=== PATIENT | male | born 1990 | race Caucasian/White ===

== ENCOUNTER 2018-07-15 13:17 | Emergency (ER) | payer OTHER ==
[2018-07-15 13:21] VITALS: RESP 18
[2018-07-15] MEDS ORDERED: SODIUM CHLORIDE 0.9% 2,000 ML IV STA (13:26)
[2018-07-15] MEDS ORDERED: ONDANSETRON 4 MG/2 ML VIAL IVP STA ×2 (13:26→15:21)
[2018-07-15] MEDS ORDERED: KETOROLAC 30 MG/ML 1 ML VIAL IVP STA (13:30)
[2018-07-15 14:05] LABS: Basophils # (A) 0.1 k/uL (0-0.2); Basophils % (A) 1 %; Eosinophils # (A) 0.2 k/uL (0-0.7); Eosinophils % (A) 2 %; HCT 51.9 % (39.0-53.0); HGB 18.1 gm/dL (13.0-17.5); Lymphocytes # (A) 1.9 k/uL (1.0-4.8); Lymphocytes % (A) 16 %; MCH 31.8 pg (25.0-35.0); MCHC 34.8 g/dL (31.0-37.0); MCV 91.3 fL (80.0-100.0); Mean Platelet Volume 8.7; Monocytes % (A) 8 %; Neutrophils # (A) 8.6 k/uL (1.3-7.7); Neutrophils % (A) 72 %; Platelet Count 306 k/uL (150-450); RBC 5.69 m/uL (4.30-5.90); RDW 15.5 % (11.5-15.5)
[2018-07-15 14:16] LABS: ALT 32 U/L (21-72); AST 27 U/L (17-59); Albumin 5.1 g/dL (3.5-5.0); Alkaline Phosphatase 94 U/L (38-126); Anion Gap 14 mmol/L; Blood Urea Nitrogen 13 mg/dL (9-20); Calcium 10.6 mg/dL (8.4-10.2); Carbon Dioxide 25 mmol/L (22-30); Chloride 99 mmol/L (98-107); Glucose 116 mg/dL (74-99); Lipase 45 U/L (23-300); Potassium 4.1 mmol/L (3.5-5.1); Sodium 138 mmol/L (137-145); Total Bilirubin 1.3 mg/dL (0.2-1.3); Total Protein 8.6 g/dL (6.3-8.2)
--- NOTE | 2018-07-15 14:27 | ED ---
Abdominal Pain HPI - General Chief Complaint: Abdominal Pain Stated Complaint: Abd pain Time Seen by Provider: 07/15/18 13:26 Source: patient, RN notes reviewed Mode of arrival: ambulatory Limitations: no limitations - History of Present Illness Initial Comments: 28-year-old male presents emergency Department chief complaint abdominal pain, nausea vomiting for 4 days. Patient states it's not improving. Patient denies any contacts with some her symptoms. Denies fever, chills, back pain, abdominal surgery history. Patient denies any chest pain or shortness breath. Patient states that nothing makes the pain feel better or worse at this time patient states he does get some pressure relief when he vomits. Patient denies any melena, hematochezia, hematemesis or coffee-ground emesis. - Related Data Previous Rx's Medication Instructions Recorded Ondansetron Odt [Zofran Odt] 4 mg PO Q8HR PRN #10 tab 07/15/18 Allergies Allergy/AdvReac Type Severity Reaction Status Date / Time No Known Allergies Allergy Verified 07/15/18 13:39 Review of Systems ROS Statement: Those systems with pertinent positive or pertinent negative responses have been documented in the HPI. ROS Other: All systems not noted in ROS Statement are negative. Past Medical History Past Medical History: No Reported History History of Any Multi-Drug Resistant Organisms: None Reported Past Surgical History: No Surgical Hx Reported Past Psychological History: No Psychological Hx Reported Smoking Status: Current every day smoker Past Alcohol Use History: None Reported Past Drug Use History: None Reported General Exam Limitations: no limitations General appearance: alert, in no apparent distress Head exam: Present: atraumatic, normocephalic, normal inspection Neck exam: Present: normal inspection, full ROM. Absent: tenderness, meningismus, lymphadenopathy Respiratory exam: Present: normal lung sounds bilaterally. Absent: respiratory distress, wheezes, rales, rhonchi, stridor Cardiovascular Exam: Present: regular rate, normal rhythm, normal heart sounds. Absent: systolic murmur, diastolic murmur, rubs, gallop, clicks GI/Abdominal exam: Present: soft, tenderness (Mild diffuse), normal bowel sounds. Absent: distended, guarding, rebound, rigid Back exam: Absent: CVA tenderness (R), CVA tenderness (L) Psychiatric exam: Present: normal affect, normal mood Course Vital Signs 07/15/18 07/15/18 13:17 15:31 Temperature 97.7 F Pulse Rate 81 83 Respiratory 18 18 Rate Blood Pressure 127/75 131/81 O2 Sat by Pulse 99 97 Oximetry Medical Decision Making - Medical Decision Making 28 show male presents emergency department for nausea vomiting abdominal discomfort. Patient had lab work, CT which is unremarkable for any acute findings. Patient does feel slightly improved after IV fluids and antiemetics. Patient we discharged with antibiotics and close follow-up with GI return parameters were discussed. - Lab Data Result diagrams: 07/15/18 14:00 07/15/18 14:00 Lab Results 07/15/18 07/15/18 07/15/18 Range/Units 14:00 14:00 15:33 WBC 12.0 H (3.8-10.6) k/uL RBC 5.69 (4.30-5.90) m/uL Hgb 18.1 H (13.0-17.5) gm/dL Hct 51.9 (39.0-53.0) % MCV 91.3 (80.0-100.0) fL MCH 31.8 (25.0-35.0) pg MCHC 34.8 (31.0-37.0) g/dL RDW 15.5 (11.5-15.5) % Plt Count 306 (150-450) k/uL Neutrophils % 72 % Lymphocytes % 16 % Monocytes % 8 % Eosinophils % 2 % Basophils % 1 % Neutrophils # 8.6 H (1.3-7.7) k/uL Lymphocytes # 1.9 (1.0-4.8) k/uL Monocytes # 1.0 (0-1.0) k/uL Eosinophils # 0.2 (0-0.7) k/uL Basophils # 0.1 (0-0.2) k/uL Sodium 138 (137-145) mmol/L Potassium 4.1 (3.5-5.1) mmol/L Chloride 99 (98-107) mmol/L Carbon Dioxide 25 (22-30) mmol/L Anion Gap 14 mmol/L BUN 13 (9-20) mg/dL Creatinine 0.94 (0.66-1.25) mg/dL Est GFR (CKD-EPI)AfAm >90 (>60 ml/min/1.73 sqM) Est GFR (CKD-EPI)NonAf >90 (>60 ml/min/1.73 sqM) Glucose 116 H (74-99) mg/dL Calcium 10.6 H (8.4-10.2) mg/dL Total Bilirubin 1.3 (0.2-1.3) mg/dL AST 27 (17-59) U/L ALT 32 (21-72) U/L Alkaline Phosphatase 94 (38-126) U/L Total Protein 8.6 H (6.3-8.2) g/dL Albumin 5.1 H (3.5-5.0) g/dL Lipase 45 (23-300) U/L Urine Color Yellow Urine Appearance Clear (Clear) Urine pH 6.5 (5.0-8.0) Urine Protein 1+ H (Negative) Urine Glucose (UA) Negative (Negative) Urine Ketones 1+ H (Negative) Urine Blood Negative (Negative) Urine Nitrite Negative (Negative) Urine Bilirubin Negative (Negative) Urine Urobilinogen 2.0 (<2.0) mg/dL Ur Leukocyte Esterase Negative (Negative) Urine RBC 1 (0-5) /hpf Urine WBC 1 (0-5) /hpf Ur Squamous Epith Cells <1 (0-4) /hpf Disposition Clinical Impression: Abdominal pain, Nausea & vomiting Disposition: HOME SELF-CARE Condition: Stable Instructions: Acute Nausea and Vomiting (ED) Additional Instructions: Please return to the Emergency Department if symptoms worsen or any other concerns. Prescriptions: Ondansetron Odt [Zofran Odt] 4 mg PO Q8HR PRN #10 tab PRN Reason: Nausea Is patient prescribed a controlled substance at d/c from ED?: No Referrals: None,Stated [Primary Care Provider] - 1-2 days Time of Disposition: 16:15
--- NOTE | 2018-07-15 15:18 | CT ---
EXAMINATION TYPE: CT abdomen pelvis w con DATE OF EXAM: 07/15/2018 COMPARISON: HISTORY: Mid abdominal pain with nausea and vomiting. CT DLP: 968.1 mGycm Automated exposure control for dose reduction was used. TECHNIQUE: Helical acquisition of images was performed from the lung bases through the pelvis. CONTRAST: Performed without Oral Contrast and with IV Contrast, patient injected with 100 mL of Isovue 300. FINDINGS: LUNG BASES: No significant abnormality is appreciated. LIVER/GB: No significant abnormality is appreciated. PANCREAS: No significant abnormality is seen. SPLEEN: No significant abnormality is seen. ADRENALS: No significant abnormality is seen. KIDNEYS: No significant abnormality is seen. FREE AIR: No free air is visualized. RETROPERITONEAL ADENOPATHY: None visualized REPRODUCTIVE ORGANS: No significant abnormality is seen URINARY BLADDER: No significant abnormality is seen. PELVIC ADENOPATHY: None visualized. OSSEOUS STRUCTURES: No significant abnormality is seen. BOWEL: No significant abnormality is seen. Appendix is normal. IMPRESSION: NO EVIDENCE OF ACUTE INTRA-ABDOMINAL OR PELVIC PROCESS. ESSENTIALLY UNREMARKABLE EXAM.
[2018-07-15] MEDS ORDERED: diphenhydrAMINE 50 MG/ML 1 ML VIAL IVP STA (15:21)
[2018-07-15] MEDS ORDERED: FAMOTIDINE 20 MG/2 ML VIAL IV STA (15:22)
[2018-07-15 16:02] LABS: Appearance,Urine Clear (Clear); Bilirubin,Urine Negative (Negative); Blood,Urine Negative (Negative); Color,Urine Yellow; Glucose,Urine (UA) Negative (Negative); Ketones,Urine 1+ (Negative); Leukocyte Esterase,Urine Negative (Negative); Nitrite,Urine Negative (Negative); PH, Urine 6.5 (5.0-8.0); Protein,Urine 1+ (Negative); RBC,Urine 1 /hpf (0-5); Squamous Epithelial Cell,Urine <1 /hpf (0-4); WBC,Urine 1 /hpf (0-5)
[2018-07-15] MEDS ORDERED: METOCLOPRAMIDE 5 MG/ML 2 ML VIAL IVP STA (16:12)
[2018-07-15] MEDS ORDERED: SODIUM CHLORIDE 0.9% 500 ML 500 ML IV ONE (16:12)
[2018-07-15 16:29] LABS: Specific Gravity,Urine >1.050 (1.001-1.035)
[2018-07-15 16:54] VITALS: BP 116/66; PULSE 75; TEMP 98.2
== END 2018-07-15 16:52 | disposition home or self-care (01) ==
LOC: EC 13:17
DX: R10.9 Unspecified abdominal pain (principal); R11.2 Nausea with vomiting, unspecified; F17.200 Nicotine dependence, unspecified, uncomplicated
CPT/HCPCS: 36415; 80053; 83690; 85025; 81001; 74177; 99284; 96374; 96375 ×4; 96376; 96361 ×3; J1200; J2765; J2405; J1885; Q9967

== ENCOUNTER 2019-05-04 08:00 | Emergency (ER) | payer OTHER ==
[2019-05-04 08:11] VITALS: RESP 16; TEMP 98.3
[2019-05-04] MEDS ORDERED: SODIUM CHLORIDE 0.9% 1,000 ML IV STA (08:20)
--- NOTE | 2019-05-04 08:31 | ED ---
Abdominal Pain HPI - General Chief Complaint: Abdominal Pain Stated Complaint: Abd Pain Time Seen by Provider: 05/04/19 08:10 Source: patient, RN notes reviewed Mode of arrival: ambulatory Limitations: no limitations - History of Present Illness Initial Comments: 29-year-old male presents emergency Department chief complaint of worsening abdominal pain. Patient states pain has been waxing and waning last few months but states the last week he's had increase in symptoms. States it's more generalized in nature. Patient states is concerned because he feels very constipated. Patient states he was unable to get any stool out. He did have some bleeding 3 days ago. Patient states he has been drinking more fluids and eating more grains. he states it's not helping. he has not taken anything prior states laxatives and stool softeners. Patient denies any fevers, chills, dysuria, hematuria. Patient's had no prior abdominal surgeries. Denies any chest pain shortness breath. - Related Data Home Medications Medication Instructions Recorded Confirmed No Known Home Medications 05/04/19 05/04/19 Allergies Allergy/AdvReac Type Severity Reaction Status Date / Time No Known Allergies Allergy Verified 05/04/19 09:24 Review of Systems ROS Statement: Those systems with pertinent positive or pertinent negative responses have been documented in the HPI. ROS Other: All systems not noted in ROS Statement are negative. Past Medical History Past Medical History: No Reported History History of Any Multi-Drug Resistant Organisms: None Reported Past Surgical History: No Surgical Hx Reported Past Psychological History: No Psychological Hx Reported Smoking Status: Current every day smoker Past Alcohol Use History: None Reported Past Drug Use History: None Reported General Exam Limitations: no limitations General appearance: alert, in no apparent distress Head exam: Present: atraumatic, normocephalic, normal inspection Eye exam: Present: normal appearance, PERRL, EOMI. Absent: scleral icterus, con junctival injection, periorbital swelling Neck exam: Present: normal inspection, full ROM. Absent: tenderness, meningismus, lymphadenopathy Respiratory exam: Present: normal lung sounds bilaterally. Absent: respiratory distress, wheezes, rales, rhonchi, stridor Cardiovascular Exam: Present: regular rate, normal rhythm, normal heart sounds. Absent: systolic murmur, diastolic murmur, rubs, gallop, clicks GI/Abdominal exam: Present: soft, tenderness (Mild diffuse no localized tenderness), normal bowel sounds. Absent: distended, guarding, rebound, rigid Back exam: Absent: CVA tenderness (R), CVA tenderness (L) Neurological exam: Present: alert, oriented X3 Skin exam: Present: warm, dry, intact, normal color. Absent: rash Course Vital Signs 05/04/19 08:10 Temperature 98.3 F Pulse Rate 71 Respiratory 16 Rate Blood Pressure 122/78 O2 Sat by Pulse 99 Oximetry Medical Decision Making - Medical Decision Making Patient updated on results, labs unremarkable x-rays nonspecific there is moderate stool. Patient is sleeping in the room in no distress. Abdomen soft. Patient will be discharged return parameters were discussed. Patient agrees to plan - Lab Data Result diagrams: 05/04/19 08:30 05/04/19 08:30 Lab Results 05/04/19 05/04/19 05/04/19 Range/Units 08:30 08:30 08:30 WBC 5.8 (3.8-10.6) k/uL RBC 5.03 (4.30-5.90) m/uL Hgb 15.9 (13.0-17.5) gm/dL Hct 46.4 (39.0-53.0) % MCV 92.3 (80.0-100.0) fL MCH 31.5 (25.0-35.0) pg MCHC 34.2 (31.0-37.0) g/dL RDW 12.6 (11.5-15.5) % Plt Count 265 (150-450) k/uL Neutrophils % 50 % Lymphocytes % 28 % Monocytes % 8 % Eosinophils % 9 % Basophils % 3 % Neutrophils # 2.9 (1.3-7.7) k/uL Lymphocytes # 1.6 (1.0-4.8) k/uL Monocytes # 0.5 (0-1.0) k/uL Eosinophils # 0.5 (0-0.7) k/uL Basophils # 0.2 (0-0.2) k/uL Sodium 140 (137-145) mmol/L Potassium 4.5 (3.5-5.1) mmol/L Chloride 108 H (98-107) mmol/L Carbon Dioxide 24 (22-30) mmol/L Anion Gap 8 mmol/L BUN 14 (9-20) mg/dL Creatinine 0.64 L (0.66-1.25) mg/dL Est GFR (CKD-EPI)AfAm >90 (>60 ml/min/1.73 sqM) Est GFR (CKD-EPI)NonAf >90 (>60 ml/min/1.73 sqM) Glucose 106 H (74-99) mg/dL Plasma Lactic Acid Phan (0.7-2.0) mmol/L Calcium 9.9 (8.4-10.2) mg/dL Total Bilirubin 0.8 (0.2-1.3) mg/dL AST 23 (17-59) U/L ALT 16 L (21-72) U/L Alkaline Phosphatase 53 (38-126) U/L Total Protein 7.4 (6.3-8.2) g/dL Albumin 4.1 (3.5-5.0) g/dL Amylase 63 (30-110) U/L Lipase 81 (23-300) U/L Urine Color Yellow Urine Appearance Clear (Clear) Urine pH 7.0 (5.0-8.0) Ur Specific [place] 1.028 (1.001-1.035) Urine Protein Trace H (Negative) Urine Glucose (UA) Negative (Negative) Urine Ketones Negative (Negative) Urine Blood Negative (Negative) Urine Nitrite Negative (Negative) Urine Bilirubin Negative (Negative) Urine Urobilinogen 3.0 (<2.0) mg/dL Ur Leukocyte Esterase Negative (Negative) 05/04/19 Range/Units 08:30 WBC (3.8-10.6) k/uL RBC (4.30-5.90) m/uL Hgb (13.0-17.5) gm/dL Hct (39.0-53.0) % MCV (80.0-100.0) fL MCH (25.0-35.0) pg MCHC (31.0-37.0) g/dL RDW (11.5-15.5) % Plt Count (150-450) k/uL Neutrophils % % Lymphocytes % % Monocytes % % Eosinophils % % Basophils % % Neutrophils # (1.3-7.7) k/uL Lymphocytes # (1.0-4.8) k/uL Monocytes # (0-1.0) k/uL Eosinophils # (0-0.7) k/uL Basophils # (0-0.2) k/uL Sodium (137-145) mmol/L Potassium (3.5-5.1) mmol/L Chloride (98-107) mmol/L Carbon Dioxide (22-30) mmol/L Anion Gap mmol/L BUN (9-20) mg/dL Creatinine (0.66-1.25) mg/dL Est GFR (CKD-EPI)AfAm (>60 ml/min/1.73 sqM) Est GFR (CKD-EPI)NonAf (>60 ml/min/1.73 sqM) Glucose (74-99) mg/dL Plasma Lactic Acid Phan 1.2 (0.7-2.0) mmol/L Calcium (8.4-10.2) mg/dL Total Bilirubin (0.2-1.3) mg/dL AST (17-59) U/L ALT (21-72) U/L Alkaline Phosphatase (38-126) U/L Total Protein (6.3-8.2) g/dL Albumin (3.5-5.0) g/dL Amylase (30-110) U/L Lipase (23-300) U/L Urine Color Urine Appearance (Clear) Urine pH (5.0-8.0) Ur Specific [place] (1.001-1.035) Urine Protein (Negative) Urine Glucose (UA) (Negative) Urine Ketones (Negative) Urine Blood (Negative) Urine Nitrite (Negative) Urine Bilirubin (Negative) Urine Urobilinogen (<2.0) mg/dL Ur Leukocyte Esterase (Negative) Disposition Clinical Impression: Abdominal pain Disposition: HOME SELF-CARE Condition: Stable Instructions (If sedation given, give patient instructions): Abdominal Pain (ED) Additional Instructions: Please return to the Emergency Department if symptoms worsen or any other concerns. Is patient prescribed a controlled substance at d/c from ED?: No Referrals: None,Stated [Primary Care Provider] - 1-2 days Time of Disposition: 09:36
[2019-05-04 08:49] LABS: Appearance,Urine Clear (Clear); Basophils # (A) 0.2 k/uL (0-0.2); Basophils % (A) 3 %; Bilirubin,Urine Negative (Negative); Blood,Urine Negative (Negative); Color,Urine Yellow; Eosinophils # (A) 0.5 k/uL (0-0.7); Eosinophils % (A) 9 %; Glucose,Urine (UA) Negative (Negative); HCT 46.4 % (39.0-53.0); HGB 15.9 gm/dL (13.0-17.5); Ketones,Urine Negative (Negative); Leukocyte Esterase,Urine Negative (Negative); Lymphocytes # (A) 1.6 k/uL (1.0-4.8); Lymphocytes % (A) 28 %; MCH 31.5 pg (25.0-35.0); MCHC 34.2 g/dL (31.0-37.0); MCV 92.3 fL (80.0-100.0); Mean Platelet Volume 6.8; Monocytes # (A) 0.5 k/uL (0-1.0); Monocytes % (A) 8 %; Neutrophils # (A) 2.9 k/uL (1.3-7.7); Neutrophils % (A) 50 %; Nitrite,Urine Negative (Negative); Platelet Count 265 k/uL (150-450); Protein,Urine Trace (Negative); RBC 5.03 m/uL (4.30-5.90); RDW 12.6 % (11.5-15.5); Specific Gravity,Urine 1.028 (1.001-1.035); WBC 5.8 k/uL (3.8-10.6)
[2019-05-04 09:00] LABS: ALT 16 U/L (21-72); AST 23 U/L (17-59); African American GFR (CKD) >90 (>60 ml/min/1.73 sqM); Albumin 4.1 g/dL (3.5-5.0); Alkaline Phosphatase 53 U/L (38-126); Amylase 63 U/L (30-110); Anion Gap 8 mmol/L; Blood Urea Nitrogen 14 mg/dL (9-20); Calcium 9.9 mg/dL (8.4-10.2); Carbon Dioxide 24 mmol/L (22-30); Chloride 108 mmol/L (98-107); Glucose 106 mg/dL (74-99); Potassium 4.5 mmol/L (3.5-5.1); Sodium 140 mmol/L (137-145); Total Bilirubin 0.8 mg/dL (0.2-1.3); Total Protein 7.4 g/dL (6.3-8.2)
--- NOTE | 2019-05-04 09:12 | XR ---
EXAMINATION TYPE: XR KUB , 2 VIEWS DATE OF EXAM ORDERED: 05/04/2019 HISTORY: abdominal pain. COMPARISON: None. FINDINGS: The lung bases are clear. Within the abdomen, the abdominal gas pattern is normal. There is no evidence of obstruction or free air. No unusual calcifications are noted. Note is made of spina bifida occulta at S1. IMPRESSION: NO ACUTE INTRA-ABDOMINAL ABNORMALITY.
[2019-05-04 09:42] VITALS: BP 120/82; PULSE 70
== END 2019-05-04 09:41 | disposition home or self-care (01) ==
LOC: EC 08:00
DX: R10.9 Unspecified abdominal pain (principal); F17.200 Nicotine dependence, unspecified, uncomplicated
CPT/HCPCS: 36415; 74018; 80053; 81003; 82150; 83605; 83690; 85025; 96360; 99284

== ENCOUNTER 2019-08-04 11:08 | Emergency (ER) | payer OTHER ==
[2019-08-04] MEDS ORDERED: IBUPROFEN 600 MG TAB PO STA (11:32)
[2019-08-04] MEDS ORDERED: SODIUM CHLORIDE 0.9% 1,000 ML IV STA (11:32)
[2019-08-04] MEDS ORDERED: IPRATROPIUM-ALBUTEROL 3 ML NEB INHALATION STA (11:32)
[2019-08-04] MEDS ORDERED: ACETAMINOPHEN TAB 500 MG TAB PO STA (12:03)
--- NOTE | 2019-08-04 12:16 | ED ---
URI HPI - General Chief Complaint: Upper Respiratory Infection Stated Complaint: cough/fever Time Seen by Provider: 08/04/19 11:10 Source: patient Mode of arrival: ambulatory Limitations: no limitations - History of Present Illness Initial Comments: The patient is a 29-year-old male with past medical history of nephrotic syndrome as a child who presents to the emergency room with 4 days worth of cough and congestion. He denies any sick contacts or recent travel. Does admit to wheezing. Some mild yellow sputum production. Admits to chills and full- body aches. Reports left sided neck tightness. He denies any headaches or visual changes. Admits to nausea without vomiting. Denies chest pain. No abdominal pain. Admits to loose watery stools. No melanotic stools or hematochezia. Admits to decreased urine output. Is not currently on any m edications for his nephrotic syndrome. He continues to eat and drink without difficulty. He has been taking Motrin and Tylenol alternating for his fevers. He also took NyQuil last night before bed. He denies any neck stiffness or unilateral numbness or weakness. There are no other alleviating, precipitating or modifying factors - Related Data Previous Rx's Medication Instructions Recorded Albuterol Sulfate [Proair Hfa] 1 - 2 puff INHALATION Q4HR PRN #1 08/04/19 inhaler Azithromycin [Zithromax Z-pack] 250 mg PO DIRECTED #6 tab 08/04/19 Allergies Allergy/AdvReac Type Severity Reaction Status Date / Time No Known Allergies Allergy Verified 08/04/19 11:10 Review of Systems ROS Statement: Those systems with pertinent positive or pertinent negative responses have been documented in the HPI. ROS Other: All systems not noted in ROS Statement are negative. Past Medical History Past Medical History: No Reported History Additional Past Medical History / Comment(s): nephrotic syndrome History of Any Multi-Drug Resistant Organisms: None Reported Past Surgical History: No Surgical Hx Reported Past Psychological History: No Psychological Hx Reported Smoking Status: Current every day smoker Past Alcohol Use History: None Reported Past Drug Use History: None Reported General Exam Limitations: no limitations General appearance: alert, in no apparent distress Head exam: Present: atraumatic, normocephalic, normal inspection Eye exam: Present: normal appearance, PERRL, EOMI. Absent: scleral icterus, conjunctival injection, periorbital swelling ENT exam: Present: normal exam, mucous membranes moist Neck exam: Present: normal inspection. Absent: tenderness, meningismus, lymphadenopathy Respiratory exam: Present: wheezes, other (bronchospastic cough). Absent: respiratory distress, rales, rhonchi, stridor Cardiovascular Exam: Present: regular rate, normal rhythm, normal heart sounds. Absent: systolic murmur, diastolic murmur, rubs, gallop, clicks GI/Abdominal exam: Present: soft, normal bowel sounds. Absent: distended, tenderness, guarding, rebound, rigid Extremities exam: Present: normal inspection, full ROM, normal capillary refill. Absent: tenderness, pedal edema, joint swelling, calf tenderness Back exam: Present: normal inspection Neurological exam: Present: alert, oriented X3, CN II-XII intact Psychiatric exam: Present: normal affect, normal mood Skin exam: Present: warm, dry, intact, normal color. Absent: rash Course Vital Signs 08/04/19 08/04/19 08/04/19 11:10 11:48 11:55 Temperature 102.5 F H Pulse Rate 80 80 Respiratory 18 20 Rate Blood Pressure 116/69 O2 Sat by Pulse 97 Oximetry 08/04/19 08/04/19 08/04/19 12:01 12:39 13:50 Temperature 99.0 F Pulse Rate 88 86 Respiratory 16 16 Rate Blood Pressure 109/62 O2 Sat by Pulse 94 L Oximetry Medical Decision Making - Medical Decision Making Upon arrival the patient was placed into room 27. A thorough history and physical exam was performed. Because the patient's reported nephrotic syndrome with decreased urine output I did recommend laboratory studies. CBC is unremarkable. CMP shows a creatinine of 0.6. Urinalysis shows 1+ protein with many mucus. Influenza B is detected. Group A strep and influenza A are not detected. Chest x-ray was performed and is read by the radiologist as negative. I am concerned for a right middle lobe infiltrate and therefore I did recommend recommend treatment. The patient's vitals are obtained and are improved. At this time the patient will be discharged home with prescriptions for an inhaler and azithromycin. They are sent to the pharmacy. The patient is up with his primary care doctor in 2-4 days. Return to the emergency room for any worsening symptoms. The patient was in agreement treatment plan he is discharged home in stable condition - Lab Data Result diagrams: 08/04/19 11:46 08/04/19 11:46 Lab Results 08/04/19 08/04/19 08/04/19 Range/Units 11:46 11:46 11:46 WBC 5.5 (3.8-10.6) k/uL RBC 4.96 (4.30-5.90) m/uL Hgb 15.8 (13.0-17.5) gm/dL Hct 45.5 (39.0-53.0) % MCV 91.7 (80.0-100.0) fL MCH 31.9 (25.0-35.0) pg MCHC 34.8 (31.0-37.0) g/dL RDW 12.5 (11.5-15.5) % Plt Count 160 (150-450) k/uL Neutrophils % (Manual) 37 % Band Neutrophils % 7 % Lymphocytes % (Manual) 29 % Monocytes % (Manual) 25 % Basophils % (Manual) 2 % Neutrophils # (Manual) 2.40 (1.3-7.7) k/uL Lymphocytes # (Manual) 1.60 (1.0-4.8) k/uL Monocytes # (Manual) 1.38 H (0-1.0) k/uL Basophils # (Manual) 0.11 (0-0.2) k/uL Nucleated RBCs 0 (0-0) /100 WBC Manual Slide Review Performed RBC Morphology Normal Sodium 138 (137-145) mmol/L Potassium 4.2 (3.5-5.1) mmol/L Chloride 103 (98-107) mmol/L Carbon Dioxide 25 (22-30) mmol/L Anion Gap 10 mmol/L BUN 11 (9-20) mg/dL Creatinine 0.64 L (0.66-1.25) mg/dL Est GFR (CKD-EPI)AfAm >90 (>60 ml/min/1.73 sqM) Est GFR (CKD-EPI)NonAf >90 (>60 ml/min/1.73 sqM) Glucose 105 H (74-99) mg/dL Calcium 8.8 (8.4-10.2) mg/dL Total Bilirubin 0.6 (0.2-1.3) mg/dL AST 32 (17-59) U/L ALT 15 (4-49) U/L Alkaline Phosphatase 61 (38-126) U/L Total Protein 7.5 (6.3-8.2) g/dL Albumin 4.1 (3.5-5.0) g/dL Urine Color Urine Appearance (Clear) Urine pH (5.0-8.0) Ur Specific [place] (1.001-1.035) Urine Protein (Negative) Urine Glucose (UA) (Negative) Urine Ketones (Negative) Urine Blood (Negative) Urine Nitrite (Negative) Urine Bilirubin (Negative) Urine Urobilinogen (<2.0) mg/dL Ur Leukocyte Esterase (Negative) Urine RBC (0-5) /hpf Urine WBC (0-5) /hpf Ur Squamous Epith Cells (0-4) /hpf Urine Mucus (None) /hpf Influenza Type A RNA Not Detected (Not Detectd) Influenza Type B (PCR) Detected H (Not Detectd) Group A Strep Rapid (Negative) 08/04/19 08/04/19 Range/Units 11:46 12:35 WBC (3.8-10.6) k/uL RBC (4.30-5.90) m/uL Hgb (13.0-17.5) gm/dL Hct (39.0-53.0) % MCV (80.0-100.0) fL MCH (25.0-35.0) pg MCHC (31.0-37.0) g/dL RDW (11.5-15.5) % Plt Count (150-450) k/uL Neutrophils % (Manual) % Band Neutrophils % % Lymphocytes % (Manual) % Monocytes % (Manual) % Basophils % (Manual) % Neutrophils # (Manual) (1.3-7.7) k/uL Lymphocytes # (Manual) (1.0-4.8) k/uL Monocytes # (Manual) (0-1.0) k/uL Basophils # (Manual) (0-0.2) k/uL Nucleated RBCs (0-0) /100 WBC Manual Slide Review RBC Morphology Sodium (137-145) mmol/L Potassium (3.5-5.1) mmol/L Chloride (98-107) mmol/L Carbon Dioxide (22-30) mmol/L Anion Gap mmol/L BUN (9-20) mg/dL Creatinine (0.66-1.25) mg/dL Est GFR (CKD-EPI)AfAm (>60 ml/min/1.73 sqM) Est GFR (CKD-EPI)NonAf (>60 ml/min/1.73 sqM) Glucose (74-99) mg/dL Calcium (8.4-10.2) mg/dL Total Bilirubin (0.2-1.3) mg/dL AST (17-59) U/L ALT (4-49) U/L Alkaline Phosphatase (38-126) U/L Total Protein (6.3-8.2) g/dL Albumin (3.5-5.0) g/dL Urine Color Yellow Urine Appearance Clear (Clear) Urine pH 6.5 (5.0-8.0) Ur Specific [place] 1.034 (1.001-1.035) Urine Protein 1+ H (Negative) Urine Glucose (UA) Negative (Negative) Urine Ketones Negative (Negative) Urine Blood Negative (Negative) Urine Nitrite Negative (Negative) Urine Bilirubin Negative (Negative) Urine Urobilinogen 4.0 (<2.0) mg/dL Ur Leukocyte Esterase Negative (Negative) Urine RBC 1 (0-5) /hpf Urine WBC 2 (0-5) /hpf Ur Squamous Epith Cells <1 (0-4) /hpf Urine Mucus Many H (None) /hpf Influenza Type A RNA (Not Detectd) Influenza Type B (PCR) (Not Detectd) Group A Strep Rapid Negative (Negative) Disposition Clinical Impression: Influenza B Disposition: HOME SELF-CARE Condition: Stable Instructions (If sedation given, give patient instructions): Influenza (ED) Additional Instructions: Please follow up with your primary care doctor in 2-4 days. Return to the emergency room for any new worsening symptoms Prescriptions: Albuterol Sulfate [Proair Hfa] 1 - 2 puff INHALATION Q4HR PRN #1 inhaler PRN Reason: difficulty in breathing Azithromycin [Zithromax Z-pack] 250 mg PO DIRECTED #6 tab Is patient prescribed a controlled substance at d/c from ED?: No Referrals: None,Stated [Primary Care Provider] - 1-2 days Time of Disposition: 13:38
[2019-08-04 12:18] LABS: HCT 45.5 % (39.0-53.0); HGB 15.8 gm/dL (13.0-17.5); MCH 31.9 pg (25.0-35.0); MCHC 34.8 g/dL (31.0-37.0); MCV 91.7 fL (80.0-100.0); Mean Platelet Volume 8.5; Platelet Count 160 k/uL (150-450); RBC 4.96 m/uL (4.30-5.90); RDW 12.5 % (11.5-15.5); WBC 5.5 k/uL (3.8-10.6)
--- NOTE | 2019-08-04 12:28 | XR ---
EXAMINATION TYPE: XR chest 2V DATE OF EXAM ORDERED: 08/04/2019 HISTORY: cough. REFERENCE: None. FINDINGS: The lungs are clear. Pleural spaces are clear. Heart size is normal. IMPRESSION: NORMAL CHEST.
[2019-08-04 12:36] LABS: ALT 15 U/L (4-49); AST 32 U/L (17-59); African American GFR (CKD) >90 (>60 ml/min/1.73 sqM); Albumin 4.1 g/dL (3.5-5.0); Alkaline Phosphatase 61 U/L (38-126); Anion Gap 10 mmol/L; Band Neutrophils % 7 %; Basophils # (M) 0.11 k/uL (0-0.2); Blood Urea Nitrogen 11 mg/dL (9-20); Calcium 8.8 mg/dL (8.4-10.2); Carbon Dioxide 25 mmol/L (22-30); Chloride 103 mmol/L (98-107); Glucose 105 mg/dL (74-99); Monocytes # (M) 1.38 k/uL (0-1.0); Neutrophils % (M) 37 %; Non-African American GFR(CKD) >90 (>60 ml/min/1.73 sqM); Nucleated Red Blood Cells 0 /100 WBC (0-0); Potassium 4.2 mmol/L (3.5-5.1); Sodium 138 mmol/L (137-145); Total Bilirubin 0.6 mg/dL (0.2-1.3); Total Cells Counted 100; Total Protein 7.5 g/dL (6.3-8.2)
[2019-08-04 12:40] VITALS: RESP 16
[2019-08-04 12:57] LABS: Appearance,Urine Clear (Clear); Bilirubin,Urine Negative (Negative); Blood,Urine Negative (Negative); Color,Urine Yellow; Glucose,Urine (UA) Negative (Negative); Ketones,Urine Negative (Negative); Leukocyte Esterase,Urine Negative (Negative); Mucus,Urine Many /hpf; Nitrite,Urine Negative (Negative); PH, Urine 6.5 (5.0-8.0); Protein,Urine 1+ (Negative); RBC,Urine 1 /hpf (0-5); Specific Gravity,Urine 1.034 (1.001-1.035); Squamous Epithelial Cell,Urine <1 /hpf (0-4); WBC,Urine 2 /hpf (0-5)
[2019-08-04 13:55] VITALS: BP 109/62; PULSE 86; TEMP 99
== END 2019-08-04 13:50 | disposition home or self-care (01) ==
LOC: EC 11:08
DX: J10.1 Influenza due to other identified influenza virus with other respiratory manifestations (principal); F17.200 Nicotine dependence, unspecified, uncomplicated
CPT/HCPCS: 36415; 71046; 80053; 81001; 85025; 87081; 87430; 87502; 94640; 96360; 96361; 99284

== ENCOUNTER 2020-01-01 04:04 | Emergency (ER) | payer OTHER ==
[2020-01-01 04:11] VITALS: RESP 18; TEMP 98.9
[2020-01-01] MEDS ORDERED: AMPICILLIN-SULBACTAM 3 GM in SODIUM CHLORIDE 0.9% 100 ML IVPB STA (04:23)
[2020-01-01] MEDS ORDERED: DEXAMETHASONE SOD PHOSPHATE 10 MG/ML 1 ML VIAL IV STA (04:23)
[2020-01-01] MEDS ORDERED: SODIUM CHLORIDE 0.9% 1,000 ML IV STA (04:24)
--- NOTE | 2020-01-01 04:24 | ED ---
ENT HPI - General Chief complaint: Dental/Oral Stated complaint: Facial swelling Time Seen by Provider: 01/01/20 04:12 Source: patient, RN notes reviewed, old records reviewed Mode of arrival: ambulatory Limitations: no limitations - History of Present Illness Initial comments: This is a 29-year-old male DF for evaluation she woke up today with significant facial swelling, patient has some had a runny nose lately with right-sided facial pain. Denying any fevers. No modifying factors for symptoms no history of significant dental disease MD complaint: tooth pain, other (Facial swelling) -: days(s) Location: upper lip Severity: moderate Severity scale (1-10): 6 Quality: aching Consistency: constant Improves with: none Worsens with: none Context- Dental: history of dental caries Associated Symptoms: fever - Related Data Previous Rx's Medication Instructions Recorded Albuterol Sulfate [Proair Hfa] 1 - 2 puff INHALATION Q4HR PRN #1 08/04/19 inhaler Azithromycin [Zithromax Z-pack] 250 mg PO DIRECTED #6 tab 08/04/19 Amoxic-Pot Clav 875-125Mg 1 tab PO Q12HR #20 tablet 01/01/20 [Augmentin 875-125] Allergies Allergy/AdvReac Type Severity Reaction Status Date / Time No Known Allergies Allergy Verified 01/01/20 04:11 Review of Systems ROS Statement: Those systems with pertinent positive or pertinent negative responses have been documented in the HPI. ROS Other: All systems not noted in ROS Statement are negative. Past Medical History Past Medical History: No Reported History Additional Past Medical History / Comment(s): nephrotic syndrome History of Any Multi-Drug Resistant Organisms: None Reported Past Surgical History: No Surgical Hx Reported Past Psychological History: No Psychological Hx Reported Smoking Status: Current every day smoker Past Alcohol Use History: None Reported Past Drug Use History: None Reported General Exam Limitations: no limitations General appearance: alert, in no apparent distress Head exam: Present: atraumatic, normocephalic, normal inspection Eye exam: Present: normal appearance, PERRL, EOMI. Absent: scleral icterus, conjunctival injection, periorbital swelling ENT exam: Present: normal exam, mucous membranes moist, other (Significant facial swelling right maxillary swelling) Neck exam: Present: normal inspection. Absent: tenderness, meningismus, lymphadenopathy Respiratory exam: Present: normal lung sounds bilaterally. Absent: respiratory distress, wheezes, rales, rhonchi, stridor Cardiovascular Exam: Present: regular rate, normal rhythm, normal heart sounds. Absent: systolic murmur, diastolic murmur, rubs, gallop, clicks GI/Abdominal exam: Present: soft, normal bowel sounds. Absent: distended, tenderness, guarding, rebound, rigid Extremities exam: Present: normal inspection, full ROM, normal capillary refill. Absent: tenderness, pedal edema, joint swelling, calf tenderness Back exam: Present: normal inspection Neurological exam: Present: alert, oriented X3, CN II-XII intact Psychiatric exam: Present: normal affect, normal mood Skin exam: Present: warm, dry, intact, normal color. Absent: rash Course Vital Signs 01/01/20 01/01/20 04:09 05:54 Temperature 98.9 F Pulse Rate 86 84 Respiratory 18 18 Rate Blood Pressure 130/90 127/74 O2 Sat by Pulse 96 97 Oximetry - Reevaluation(s) Reevaluation #1: Medical record is reviewed Patient feeling better here in the ER swelling is diminished Medical Decision Making - Medical Decision Making 79 male DF for evaluation patient swelling right-sided maxillary sinusitis patient will be treated with infection - Lab Data Result diagrams: 01/01/20 04:35 01/01/20 04:35 Lab Results 01/01/20 01/01/20 Range/Units 04:35 04:35 WBC 11.4 H (3.8-10.6) k/uL RBC 4.36 (4.30-5.90) m/uL Hgb 14.4 (13.0-17.5) gm/dL Hct 41.4 (39.0-53.0) % MCV 95.0 (80.0-100.0) fL MCH 33.0 (25.0-35.0) pg MCHC 34.7 (31.0-37.0) g/dL RDW 12.9 (11.5-15.5) % Plt Count 211 (150-450) k/uL Neutrophils % 70 % Lymphocytes % 17 % Monocytes % 8 % Eosinophils % 3 % Basophils % 1 % Neutrophils # 8.0 H (1.3-7.7) k/uL Lymphocytes # 1.9 (1.0-4.8) k/uL Monocytes # 0.9 (0-1.0) k/uL Eosinophils # 0.4 (0-0.7) k/uL Basophils # 0.1 (0-0.2) k/uL Sodium 135 L (137-145) mmol/L Potassium 4.4 (3.5-5.1) mmol/L Chloride 104 (98-107) mmol/L Carbon Dioxide 24 (22-30) mmol/L Anion Gap 7 mmol/L BUN 14 (9-20) mg/dL Creatinine 0.77 (0.66-1.25) mg/dL Est GFR (CKD-EPI)AfAm >90 (>60 ml/min/1.73 sqM) Est GFR (CKD-EPI)NonAf >90 (>60 ml/min/1.73 sqM) Glucose 107 H (74-99) mg/dL Calcium 8.6 (8.4-10.2) mg/dL Total Bilirubin 0.6 (0.2-1.3) mg/dL AST 21 (17-59) U/L ALT 13 (4-49) U/L Alkaline Phosphatase 61 (38-126) U/L Total Protein 6.5 (6.3-8.2) g/dL Albumin 3.5 (3.5-5.0) g/dL - Radiology Data Radiology results: report reviewed (CT sinuses shows maxillary sinusitis), image reviewed Disposition Clinical Impression: Maxillary sinusitis Disposition: HOME SELF-CARE Condition: Good Instructions (If sedation given, give patient instructions): Sinusitis (ED) Prescriptions: Amoxic-Pot Clav 875-125Mg [Augmentin 875-125] 1 tab PO Q12HR #20 tablet Is patient prescribed a controlled substance at d/c from ED?: No Referrals: None,Stated [Primary Care Provider] - 1-2 days
[2020-01-01 04:48] LABS: Basophils # (A) 0.1 k/uL (0-0.2); Basophils % (A) 1 %; Eosinophils # (A) 0.4 k/uL (0-0.7); Eosinophils % (A) 3 %; HCT 41.4 % (39.0-53.0); HGB 14.4 gm/dL (13.0-17.5); Lymphocytes # (A) 1.9 k/uL (1.0-4.8); Lymphocytes % (A) 17 %; MCHC 34.7 g/dL (31.0-37.0); Mean Platelet Volume 7.9; Monocytes # (A) 0.9 k/uL (0-1.0); Monocytes % (A) 8 %; Neutrophils % (A) 70 %; Platelet Count 211 k/uL (150-450); RBC 4.36 m/uL (4.30-5.90); RDW 12.9 % (11.5-15.5); WBC 11.4 k/uL (3.8-10.6)
[2020-01-01 04:56] LABS: ALT 13 U/L (4-49); AST 21 U/L (17-59); African American GFR (CKD) >90 (>60 ml/min/1.73 sqM); Albumin 3.5 g/dL (3.5-5.0); Alkaline Phosphatase 61 U/L (38-126); Anion Gap 7 mmol/L; Blood Urea Nitrogen 14 mg/dL (9-20); Calcium 8.6 mg/dL (8.4-10.2); Carbon Dioxide 24 mmol/L (22-30); Chloride 104 mmol/L (98-107); Glucose 107 mg/dL (74-99); Non-African American GFR(CKD) >90 (>60 ml/min/1.73 sqM); Potassium 4.4 mmol/L (3.5-5.1); Sodium 135 mmol/L (137-145); Total Bilirubin 0.6 mg/dL (0.2-1.3); Total Protein 6.5 g/dL (6.3-8.2)
--- NOTE | 2020-01-01 05:19 | CT ---
EXAMINATION TYPE: CT facial bones w con DATE OF EXAM: 01/01/2020 COMPARISON: None HISTORY: Facial swelling. CT DLP: 685 mGycm Automated exposure control for dose reduction was used. CONTRAST: Performed with IV Contrast, patient injected with 100 mL of Isovue 300. The mandibular ring is intact. Temporomandibular joints are intact. Zygomatic arches appear normal. M axilla is intact. There is no evidence of a blowout fracture. The nasal bone appears intact. There is some mild mucosal thickening in the ethmoid air cells. I see no bony destructive process. There is n o evidence of retro-orbital mass. There is normal contrast opacification of the jugular veins and car otid arteries. There is opacification of the vertebral arteries. The parotid glands are symmetric. Natarajan bmandibular salivary glands are symmetric. There is no significant cervical adenopathy. The temporal bones show normal aeration. IMPRESSION: Mild ethmoid sinusitis. Otherwise negative exam.
[2020-01-01] MEDS ORDERED: AMOXIC-POT CLAV 875-125MG 1 EACH TAB PO STA (05:34)
[2020-01-01] MEDS ORDERED: AMOXIC-POT CLAV 875MG STARTER PACK 2 TAB BTL PO STA (05:34)
[2020-01-01 05:56] VITALS: BP 127/74; PULSE 84
== END 2020-01-01 05:57 | disposition home or self-care (01) ==
LOC: EC 04:04
DX: J32.0 Chronic maxillary sinusitis (principal); F17.200 Nicotine dependence, unspecified, uncomplicated
CPT/HCPCS: 36415; 80053; 85025; 87040; 70487; 99284; 96365; 96375; J1100; J0295; Q9967

== ENCOUNTER 2020-04-20 19:37 | Emergency (ER) | payer OTHER ==
[2020-04-20 19:42] VITALS: BP 137/84; PULSE 109; RESP 18; TEMP 98
--- NOTE | 2020-04-20 20:22 | ED ---
Psych HPI - General Chief Complaint: Psychiatric Symptoms Stated Complaint: Mental Health Time Seen by Provider: 04/20/20 19:46 Source: patient Mode of arrival: ambulatory - History of Present Illness Initial Comments: 30-year-old male patient presents to the emergency department today requesting to speak to a counselor or psychiatrist. Patient states that he has had a lot going on with his family and he needs to talk to someone about it. States it is making him feel depressed now that he is "seeing the big picture" when it comes to his family. Patient is reluctant to speak with me, states he would rather go over everything with the "couselor". He states he does not want me to think he is delusional. He states that his family "put him in a delusion" his whole life. He denies any suicidal or homicidal ideation. Patient states that he did attempt suicide once in the past as a teenager, he was hospitalized at that time, and was taking medications. States that he is no longer taking medication. States he does occasionally smoke marijuana but denies alcohol. He denies any hallucinations. Denies any current physical symptoms or concerns. Patient denies any recent rash, fever, chills, cough, shortness of breath, chest pain, abdominal pain, nausea, vomiting, diarrhea, constipation, back pain, numbness, tingling, dizziness, weakness, hematuria, dysuria, urinary urgency, urinary frequency, headache, visual changes, or any other complaints. - Related Data Previous Rx's Medication Instructions Recorded Albuterol Sulfate [Proair Hfa] 1 - 2 puff INHALATION Q4HR PRN #1 08/04/19 inhaler Azithromycin [Zithromax Z-pack (6 250 mg PO DIRECTED #6 tab 08/04/19 tabs)] Amoxic-Pot Clav 875-125Mg 1 tab PO Q12HR #20 tablet 01/01/20 [Augmentin 875-125] Allergies Allergy/AdvReac Type Severity Reaction Status Date / Time No Known Allergies Allergy Verified 04/20/20 19:40 Review of Systems ROS Statement: Those systems with pertinent positive or pertinent negative responses have been documented in the HPI. ROS Other: All systems not noted in ROS Statement are negative. Past Medical History Past Medical History: No Reported History Additional Past Medical History / Comment(s): nephrotic syndrome History of Any Multi-Drug Resistant Organisms: None Reported Past Surgical History: No Surgical Hx Reported Past Psychological History: Depression Smoking Status: Current some day smoker Past Alcohol Use History: None Reported Past Drug Use History: None Reported General Exam Limitations: no limitations General appearance: alert, in no apparent distress, other (This is a well- developed, well-nourished adult male patient in no acute distress. Vital signs upon presentation are temperature 98.0F, pulse 109, respirations 18, blood pressure 137/84, pulse ox 98% on room air.) Respiratory exam: Present: normal lung sounds bilaterally. Absent: respiratory distress, wheezes, rales, rhonchi, stridor Cardiovascular Exam: Present: regular rate, normal rhythm, normal heart sounds. Absent: systolic murmur, diastolic murmur, rubs, gallop, clicks GI/Abdominal exam: Present: soft, normal bowel sounds. Absent: distended, tenderness, guarding, rebound, rigid Neurological exam: Present: alert, oriented X3, CN II-XII intact Psychiatric exam: Present: normal affect, normal mood Skin exam: Present: warm, dry, intact, normal color. Absent: rash Course Vital Signs 04/20/20 19:38 Temperature 98.0 F Pulse Rate 109 H Respiratory 18 Rate Blood Pressure 137/84 O2 Sat by Pulse 98 Oximetry Medical Decision Making - Medical Decision Making 30-year-old male patient presents to the emergency department today requesting psychiatric evaluation. Denied suicidal or homicidal ideation. He was medically cleared and emergency psychiatric services was in to evaluate. They do not feel the patient meets criteria for admission at this time. He will be discharged with outpatient follow-up. He is instructed to follow-up with the primary care physician for recheck in 1-2 days. He is agreeable with this plan. - Lab Data Lab Results 04/20/20 Range/Units 20:18 Urine Opiates Screen Not Detected (NotDetected) Ur Oxycodone Screen Not Detected (NotDetected) Urine Methadone Screen Not Detected (NotDetected) Ur Propoxyphene Screen Not Detected (NotDetected) Ur Barbiturates Screen Not Detected (NotDetected) U Tricyclic Antidepress Not Detected (NotDetected) Ur Phencyclidine Scrn Not Detected (NotDetected) Ur Amphetamines Screen Not Detected (NotDetected) U Methamphetamines Scrn Not Detected (NotDetected) U Benzodiazepines Scrn Not Detected (NotDetected) Urine Cocaine Screen Not Detected (NotDetected) U Marijuana (THC) Screen Detected H (NotDetected) Disposition Clinical Impression: Depression Disposition: HOME SELF-CARE Condition: Good Instructions (If sedation given, give patient instructions): Depression (ED) Additional Instructions: Follow up with outpatient mental health services as directed. Call mobile crisis unit if you have any thoughts of harming yourself or others. Return to the emergency department for any new, worsening, or concerning symptoms. Is patient prescribed a controlled substance at d/c from ED?: No Referrals: None,Stated [Primary Care Provider] - 1-2 days Time of Disposition: 21:28
[2020-04-20 20:38] LABS: Amphetamine Screen,Urine Not Detected (NotDetected); Barbiturate Screen,Urine Not Detected (NotDetected); Benzodiazepines Screen,Urine Not Detected (NotDetected); Cocaine Screen,Urine Not Detected (NotDetected); Methadone Screen, Urine Not Detected (NotDetected); Opiate Screen,Urine Not Detected (NotDetected); Oxycodone Screen, Urine Not Detected (NotDetected); Phencyclidine Screen,Urine Not Detected (NotDetected); Tricyclic Antidepressant,Urine Not Detected (NotDetected); Urn Cannabinoid Scrn Detected (NotDetected)
== END 2020-04-20 21:50 | disposition home or self-care (01) ==
LOC: EC 19:37
DX: F32.9 Major depressive disorder, single episode, unspecified (principal); F17.200 Nicotine dependence, unspecified, uncomplicated
CPT/HCPCS: 80306; 99284

== ENCOUNTER 2020-04-23 04:48 | Inpatient (IN) | payer OTHER ==
[2020-04-23 05:31] LABS: Amphetamine Screen,Urine Not Detected (NotDetected); Barbiturate Screen,Urine Not Detected (NotDetected); Benzodiazepines Screen,Urine Not Detected (NotDetected); Cocaine Screen,Urine Not Detected (NotDetected); Methadone Screen, Urine Not Detected (NotDetected); Opiate Screen,Urine Not Detected (NotDetected); Oxycodone Screen, Urine Not Detected (NotDetected); Phencyclidine Screen,Urine Not Detected (NotDetected); Tricyclic Antidepressant,Urine Not Detected (NotDetected); Urn Cannabinoid Scrn Detected (NotDetected)
[2020-04-23] MEDS ORDERED: ZIPRASIDONE 20 MG VIAL IM PRN (08:38)
[2020-04-23] MEDS ORDERED: ACETAMINOPHEN TAB 325 MG TAB PO PRN (08:38)
[2020-04-23] MEDS ORDERED: MAG HYDROX/AL HYDROX/SIMETH 30 ML CUP PO PRN (08:38)
[2020-04-23] MEDS ORDERED: MAGNESIUM HYDROXIDE 2,400 MG/10 ML CUP PO PRN (08:38)
[2020-04-23] MEDS ORDERED: LORazepam 1 MG TAB PO PRN (08:38)
[2020-04-23] MEDS ORDERED: LORazepam 2 MG/ML INJ IM PRN (08:41)
[2020-04-23] MEDS ORDERED: NICOTINE 21MG/24HR PATCH TRANSDERM SCH (09:00)
[2020-04-23] MEDS ORDERED: hydrOXYzine pamoate 25 MG CAP PO PRN (12:15)
[2020-04-23] MEDS ORDERED: OLANZapine 5 MG TAB PO PRN (12:18)
[2020-04-23] MEDS: NICOTINE 14MG/24HR PATCH TRANSDERM SCH (12:28)
--- NOTE | 2020-04-23 13:56 | HP ---
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 The patient presented to the emergency room with depression and suicidal ideation. HISTORY OF PRESENT ILLNESS: Patient presented to the emergency room by the police after they found him walking in the rain, complaining of having suicidal ideation, paranoia, thinking that people are after him. Patient stated that he has been not able to function at work and he has been having relationship problem with his girlfriend of 9 months. He stated that he was living with a friend in [facility], but they want to charge him 500 dollars as a rent but he could not afford this . Patient claimed that he has been hearing voices telling him to hurt himself. He has been having a lot of racing thought. According to him, he came on April 20 to the ER with complaint of depression and suicidal ideation, but he was able to contract for safety and was sent home. PAST PSYCHIATRIC HISTORY: There is one previous hospitalization at age 18 after he did cut his left forearm and it was at [facility]. Patient stated that they diagnosed him with attention deficit with hyperactivity, and he was on Concerta. SUBSTANCE ABUSE HISTORY: 1. Patient was very vague and guarded about this, but he stated that he used to take Xanax from his girlfriend or from the street. Even he asked me "when I leave from here can give me prescription for 10 tablet of Xanax:? ". 2. Marijuana. He has been smoking marijuana on daily basis. 3. Alcohol. He stated that he used to drink long time ago, but he said "now it is once in a while.". FAMILY HISTORY OF PSYCHIATRIC ILLNESS: Both parents had drinking problem and depression. MEDICAL HISTORY: Sinusitis. ALLERGIES: There is no drug allergy. BRIEF SOCIAL HISTORY: The patient has 2 brothers and 3 sisters. He was raised by both parents, but he stated that it was very toxic environment as both were alcoholic. Patient stated that he did have a lot of legal issue at age 18, stealing alcohol, break and entry and he was in juvenile court more than once and he ended that he finished high school in the [employer] due to his behavior. He never had been . He does not have any children. Last relationship, it was 8-9 months. He stated recently he get in an argument with her as she is asking him for money. 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 LEGAL PROBLEM: Patient was arrested 4 times. This is in addition to his juvenile issue during his age 18. His last arrest it was 2 years ago for marijuana possession. Currently, he stated that he is on non reported probation MENTAL STATUS EXAMINATION: The patient appears older than stated age, very disheveled. He was coughing and itching throughout evaluation. He was wearing hospital gown, poor hygiene and grooming. He was able to sit without any agitation. He was vague, guarded, especially regarding his addiction history. Most of his answers regarding how frequent he was using Xanax or alcohol, "Once in a while." His speech is nonspontaneous but coherent. He reported that his mood is anxious and depressed. Affect is blunted. He denied any homicidal intent or plan. He stated that he does feel suicidal with a plan to cut himself. He denied any visual hallucination, but he stated that he is hearing voices, man voice telling him to hurt himself and hurt others. He did verbalize some persecutory delusional thinking that people are after him. He was very preoccupied with his anxiety and if I gave him prescription for Xanax when he is ready to be discharged or not. He is alert, oriented x3. Memory is grossly intact. Insight and judgment are poor. STRENGTHS AND WEAKNESS: STRENGTHS: The patient has a job. WEAKNESS: His addiction, lack of housing and no support system. INTELLECTUAL: Average. IMPRESSION: 1. Mood disorder, unspecified versus major depression disorder with psychotic feature versus bipolar disorder, unspecified. 2. Cannabis use disorder. 3. Rule out alcohol and sedative hypnotic use disorder. 4. Anxiety disorder, unspecified. 5. Nicotine dependence. PLAN: Patient is admitted under voluntary status to the mental health unit for stabilization of his symptom and safety. I will discontinue Ativan and I will start him on Zyprexa 5 mg at bedtime for the voices and for sleep and for stabilization. Also, I did give him p.r.n. Zyprexa order for his anxiety to avoid cross addiction and I will start him on Lexapro 10 mg for anxiety and depression. He has Geodon p.r.n. for agitation. The patient was encouraged to participate in group therapy. Internal Medicine was consulted to perform medical evaluation and physical. size worker onboard for discharge planning. FRANCISCO / NARINDER: [id number] / MTDD
[2020-04-23] MEDS: OLANZapine 5 MG TAB PO SCH (21:47)
--- NOTE | 2020-04-24 00:08 | P.CONS ---
History of Present Illness - Reason for Consult Consult date: 04/24/20 - History of Present Illness The patient is a 30-year-old homeless male who presented to the ED with complaints of anxiety. The patient was admitted to the mental health unit where he was seen and evaluated. The patient reported continued feelings of anxiety for which he wishes to be on medications as it is difficult for him to manage. He denied any physical complaints. Denied chest pain, shortness of breath, fever, chills, nausea, vomiting, cough. Denied abdominal pain, dysuria, or diarrhea. Patient reports that he works on [employer] and has been having a difficult time finding housing. Denied any additional illicit substance use aside from marijuana. Review of Systems Pertinent positives and negatives as discussed in HPI, a complete review of systems was performed and all other systems are negative. Past Medical History Past Medical History: No Reported History Additional Past Medical History / Comment(s): nephrotic syndrome History of Any Multi-Drug Resistant Organisms: None Reported Past Surgical History: No Surgical Hx Reported Smoking Status: Current every day smoker Medications and Allergies Home Medications Medication Instructions Recorded Confirmed Type No Known Home Medications 04/23/20 04/23/20 History Allergies Allergy/AdvReac Type Severity Reaction Status Date / Time No Known Allergies Allergy Verified 04/23/20 08:02 Physical Exam Vitals: Vital Signs Temp Pulse Pulse Resp BP BP Pulse Ox 04/23/20 07:30 97.7 F 110 H 16 113/73 95 04/23/20 06:53 98.4 F 100 16 117/69 95 04/23/20 04:52 98.1 F 102 H 20 135/70 99 Intake and Output 04/23/20 04/23/20 04/24/20 14:59 22:59 06:59 Other: Weight 78.7 kg General: non toxic, no distress, appears at stated age, normal weight Derm: no unusual rashes/lesions no unusual ecchymoses, warm, dry Head: atraumatic, normocephalic, symmetric Eyes: EOMI, no lid lag, anicteric sclera, pupils equal round reactive to light ENT: Nose and ears atraumatic, no thrush, no pharyngeal erythema Neck: No thyromegaly, no cervical lymphadenopathy, trachea midline, supple Mouth: no lip lesion, mucus membranes moist Cardiovascular: S1S2 reg, no murmur, positive posterior tibial pulse bilateral, no edema, capillary refill less than 2 seconds Lungs: CTA bilateral, no rhonchi, no rales , no accessory muscle use Abdominal: soft, nontender to palpation, no guarding, no appreciable organomegaly, normal bowel sounds Ext: no gross muscle atrophy, muscle strength 5 out of 5 in all 4 extremities grossly, no contractures, Neuro: CN II-XI grossly intact, light touch intact all 4 extremities, finger to nose within normal limits, Psych: Alert, oriented, flat affect Results Labs: Abnormal Lab Results - Last 24 Hours (Table) 04/23/20 Range/Units 05:15 U Marijuana (THC) Screen Detected H (NotDetected) Assessment and Plan Plan: Marijuana abuse -Advised on the importance of cessation Anxiety -As per psychiatry Thank you for allowing us to participate in the care of this patient. We will follow peripherally. Do not hesitate to contact us with questions. Someone can be reached from the [facility] hospitalist group at all hours of the day at [phone].
[2020-04-24] MEDS: ESCITALOPRAM 10 MG TAB PO SCH (08:39)
[2020-04-24] MEDS: NICOTINE 14MG/24HR PATCH TRANSDERM SCH (08:39)
--- NOTE | 2020-04-24 10:25 | P.PN ---
Progress Note - Text Progress Note Date: 04/24/20 I reviewed medical records ,did interview patient and case was discussed in treatment team I reviewed medical consult Slept 7 hours ,participating in some groups INTERVAL : patient was in group and agreed to follow me to office ,he was wearing hospital gown as he did not not have pant :My pant was torned when I was walking in street ",he stated that he was confused when police found him as he was sleep deprived and working 60-70 hours a week ,he talked about his relationship as he felt she was manipulating him and taking his money ,denies any sleeping or appetite problems,deniers any hallucination but he endorses paranoia and suspicious feeling saying "I do feel that people did poison me that is why I was confused and crazy",he was more open about his drinking and using Xanax ,I did primary counselor him about effect of alcohol and sedative hypnotic on his mental and physical health and it might did contribute it to his confusion,he asked me again about UDS and he is still believing that he was poisoned ,reality testing was provided as UDS was + for Cannabis only Mental status exam: Patient was wearing hospital gown,unkept ,disheveled,hygiene and grooming are poor ,denies any current suicidal or homicidal ideation ,denies any current hallucination ,vague and guarded, avoiding eyes contact ,seems anxious and nervous,endorses delusional thinking as above, alert to person and place , ,insight and judgment are impaired ASSESSMENT :Unspecified mood disorder ,polysubstance use disorder,versus depression with psychotic features PLAN: Patient continues to meet criteria for inpatient psychiatric admission for symptom stabilization ,continue Lexapro for mood and anxiety ,increase Zyprexa 10 mg HS for delusion ,encourage groups participation , ,SW on board for discharge planning
[2020-04-24 11:52] LABS: Basophils # (A) 0.1 k/uL (0-0.2); Basophils % (A) 2 %; Eosinophils # (A) 0.3 k/uL (0-0.7); Eosinophils % (A) 4 %; HCT 48.5 % (39.0-53.0); HGB 16.2 gm/dL (13.0-17.5); Lymphocytes # (A) 1.7 k/uL (1.0-4.8); Lymphocytes % (A) 23 %; MCH 32.7 pg (25.0-35.0); MCHC 33.5 g/dL (31.0-37.0); MCV 97.4 fL (80.0-100.0); Mean Platelet Volume 7.6; Monocytes # (A) 0.7 k/uL (0-1.0); Monocytes % (A) 10 %; Neutrophils # (A) 4.3 k/uL (1.3-7.7); Neutrophils % (A) 59 %; Platelet Count 251 k/uL (150-450); RBC 4.97 m/uL (4.30-5.90); WBC 7.3 k/uL (3.8-10.6)
[2020-04-24 12:16] LABS: Potassium 5.4 mmol/L (3.5-5.1)
[2020-04-24 12:17] LABS: ALT 34 U/L (4-49); AST 90 U/L (17-59); African American GFR (CKD) >90 (>60 ml/min/1.73 sqM); Albumin 4.1 g/dL (3.5-5.0); Alkaline Phosphatase 58 U/L (38-126); Anion Gap 5 mmol/L; Blood Urea Nitrogen 17 mg/dL (9-20); Calcium 9.8 mg/dL (8.4-10.2); Carbon Dioxide 29 mmol/L (22-30); Chloride 105 mmol/L (98-107); Cholesterol 107 mg/dL (<200); Glucose 85 mg/dL (74-99); HDL Cholesterol 55 mg/dL (40-60); LDL Cholesterol,Calculated 40 mg/dL (0-99); Non-African American GFR(CKD) >90 (>60 ml/min/1.73 sqM); Sodium 139 mmol/L (137-145); Total Bilirubin 1.1 mg/dL (0.2-1.3); Triglycerides 62 mg/dL (<150)
[2020-04-24] MEDS ORDERED: SODIUM POLYSTYRENE SULFONATE 15 GM/60 ML BOTTLE PO STA (13:01)
[2020-04-24] MEDS: OLANZapine 5 MG TAB PO SCH (20:59)
[2020-04-24 22:40] LABS: Hemoglobin A1C 5.2 % (4.0-6.0)
[2020-04-25 06:58] VITALS: RESP 16
[2020-04-25] MEDS: NICOTINE 14MG/24HR PATCH TRANSDERM SCH (09:07)
[2020-04-25] MEDS: ESCITALOPRAM 10 MG TAB PO SCH (09:07)
--- NOTE | 2020-04-25 11:55 | P.PN ---
Progress Note - Text Progress Note Date: 04/25/20 Interval history: Patient was seen in his room and was directable and agreeable to speak with dani santos. Patient appears to have poor hygiene and grooming today. He was calm and cooperative with senior writer and spoke more about his circumstances coming up Hospital. He claims that "I have a better plan now" and spoke about going [facility] the homeless [facility] once he is discharged from the hospital. He claims that he is trying to interact with others on the unit and go to groups more. He claims that his mood has been gradually improving along with his anxiety. He states he is able to sleep better last night and wants to remain on the current medications. He claims that he has fair appetite. At this time patient denies any suicidal or homicidal ideations intent or plan. Denies any Auditory or visual hallucinations. Patient denies any side effects from the medications and has been compliant with meds. Mental status exam: General Appearance: Patient appears to be stated age is alert, directable, and cooperative. Poor hygiene and grooming. Disheveled appearance Behavior: No agitated behavior. Patient is calm and directable Speech: Patient's speech is fluent and nonpressured. Mood/Affect: Mood is improving mildly, affect is congruent and constricted. Suicidality/Homicidality: Patient denies having any suicidal or homicidal ideation intent or plan. Perceptions: Patient denies any auditory or visual hallucinations. Though content/process: There is no evidence of any delusional thought content and thought process is linear and goal-directed. Memory and concentration: AOX3, grossly intact for the purposes of this session Judgment and insight: improving mildly Assessment/Plan: Continue with current diagnosis. Patient continues to meet criteria for inpatient psychiatric admission for symptom stabilization and safety.Patient will be maintained on current psychotropic medication regimen. Monitor for medication compliance and for any psychotropic medication side effects. Will continue to monitor ongoing response to treatment. Encouraged participation in milieu.
[2020-04-25] MEDS: OLANZapine 5 MG TAB PO SCH (20:55)
[2020-04-26] MEDS: NICOTINE 14MG/24HR PATCH TRANSDERM SCH (08:44)
[2020-04-26] MEDS: ESCITALOPRAM 10 MG TAB PO SCH (08:44)
--- NOTE | 2020-04-26 10:28 | P.PN ---
Progress Note - Text Progress Note Date: 04/26/20 Interval history: Patient was seen taking part in group this morning and was directable and agr eeable to speak with appeals writer. Patient appears to have mildly improving hygiene and grooming today. He was calm and cooperative with appeals writer today. He spoke more about his potential discharge plan and also his time here on the unit. He claims that he is finding groups helpful talking with other patients and also listening to their stories. He claims that his mood has been gradually improving along with his anxiety. He states he is able to sleep better last night however did state that he would prefer to be on nicotine gum as well. He claims that he has fair appetite. At this time patient denies any suicidal or homicidal ideations intent or plan. Denies any Auditory or visual hallucinations. Patient denies any side effects from the medications and has been compliant with meds. Mental status exam: General Appearance: Patient appears to be stated age is alert, directable, and cooperative. Mildly improving hygiene and grooming. Behavior: No agitated behavior. Patient is calm and directable Speech: Patient's speech is fluent and nonpressured. Mood/Affect: Mood is improving mildly, affect is congruent and constricted. Suicidality/Homicidality: Patient denies having any suicidal or homicidal ideation intent or plan. Perceptions: Patient denies any auditory or visual hallucinations. Though content/process: There is no evidence of any delusional thought content and thought process is linear and goal-directed. Memory and concentration: AOX3, grossly intact for the purposes of this session Judgment and insight: improving mildly Assessment/Plan: Continue with current diagnosis. Patient continues to meet criteria for inpatient psychiatric admission for symptom stabilization and safety.Patient will be maintained on current psychotropic medication regimen. Added nicotine gum when necessary. Monitor for medication compliance and for any psychotropic medication side effects. Will continue to monitor ongoing response to treatment. Encouraged participation in milieu.
[2020-04-26] MEDS: CHLORHEXIDINE GLUCONATE 15 ML CUP MUCOUS MEM SCH ×2 (12:25→20:45)
[2020-04-26] MEDS: NICOTINE POLACRILEX 2 MG GUM BUCCAL PRN ×3 (14:48→18:47)
[2020-04-26] MEDS: OLANZapine 5 MG TAB PO SCH (20:45)
[2020-04-27 06:32] VITALS: BP 125/70; PULSE 72; TEMP 97.5
[2020-04-27] MEDS: CHLORHEXIDINE GLUCONATE 15 ML CUP MUCOUS MEM SCH (08:32)
[2020-04-27] MEDS: NICOTINE 14MG/24HR PATCH TRANSDERM SCH (08:32)
[2020-04-27] MEDS: ESCITALOPRAM 10 MG TAB PO SCH (08:32)
--- NOTE | 2020-04-27 11:03 | DS ---
DISCHARGE SUMMARY DATE OF ADMISSION: 04/23/2020. DATE OF DISCHARGE: 04/27/2020 SAW REPAIRER: Dr. Selam Barber for history and physical and medical management. DISCHARGE DIAGNOSES: 1. Major depression with psychotic feature in remission versus mood disorder, unspecified. 2. Cannabis use disorder. 3. Anxiety disorder, unspecified. 4. Rule out alcohol and sedative hypnotic use disorder. 5. Nicotine dependence. 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 He is homeless. He presented to the emergency room by the police after they found him walking in the rain, complaining of having suicidal ideation, paranoia, and thinking that people are after him. Patient stated that he has been stressed out by relationship issue in addition to lack of housing and he has been hearing voices telling him to hurt himself. Patient had 1 previous hospitalization at age 18 at [facility] after he did cut his left forearm and he was diagnosed with attention deficit with hyperactivity. For complete history and physical, please refer to my dictation on April 23, 2020. HOSPITAL COURSE: Patient was admitted on voluntary basis as he did sign voluntary admission. He stated that he has been feeling overwhelmed, stressed out, suspicious, paranoia, thinking that he was poisoned, that is why he was walking in the mud, in the rain, and feeling that people are after him. He stated that he has been sleep deprived for almost 1 week, as he has been working 70-80 hours a week. Patient did agree to start on Lexapro for mood and anxiety and Zyprexa at bedtime for paranoia and suspicious feeling. Regarding his lab at the time of admission, all the labs are within normal limit except his urine drug screen was positive for marijuana. Patient did speak about ongoing stressor that he has warranty for his arrest as he is not able to pay the probation money. He owes them at least 2000 dollars in addition to his ongoing legal issue, he has no housing and very limited support system. 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 He stated that he wanted to go to trade school to be skilled video games mechanic. As he said "I do not want to change oil, I just want to be video games mechanic to do everything." Patient stated that he will try to stop using marijuana as "just affecting my thinking." On the day of the discharge, patient denied any suicidal or homicidal ideation, intent, or plan. Denied any auditory or visual hallucination. He endorsed wanting to live for his future. He denied any access to gun or weapon. Denied any paranoia or he does not feel that people are after him and he does not endorse any delusional thinking. The patient was counseled on the medication and the need to be compliant on the medication and to follow up with his outpatient appointment for mental health and also his primary care and he did verbalize understanding. MENTAL STATUS EXAMINATION: At the time of the discharge, patient appears his stated age. Pleasant, cooperative. There is no acute distress. His speech is coherent and goal directed. He reported that his mood is better. Affect is constricted. He denied having suicidal or homicidal ideation, intent, or plan. He denied any auditory, visual hallucination. He denied any paranoia. There is no evidence of any delusional thinking. His memory is grossly intact. Insight and judgment are improving. PLAN: The patient will be discharged today as he improved regarding his mood and his thinking. The patient will stay in homeless group home and he will follow up with [facility]. Patient was counseled for the need for medication and compliance and appropriate followup with the mental health and his primary care for medical issue. line out worker will help to coordinate his followup appointment with [facility]. Patient was instructed to return to the hospital or seek immediate medical care if symptoms reoccur. MMODL / IJN: [id number] /
[2020-04-27] MEDS: NICOTINE POLACRILEX 2 MG GUM BUCCAL PRN (13:35)
== END 2020-04-27 16:23 | disposition home or self-care (01) | DRG 885 ==
LOC: EC 04:48 → 3MHU 07:10
PROVIDERS: ADMIT Psychiatry & Neurology Psychiatry; ATTEND Psychiatry & Neurology Psychiatry
DX: F32.3 Major depressive disorder, single episode, severe with psychotic features (principal); R45.851 Suicidal ideations; F90.9 Attention-deficit hyperactivity disorder, unspecified type; F12.10 Cannabis abuse, uncomplicated; F41.9 Anxiety disorder, unspecified; F17.200 Nicotine dependence, unspecified, uncomplicated; Z87.441 Personal history of nephrotic syndrome; Z91.5 Personal history of self-harm; Z72.820 Sleep deprivation; Z59.0 Homelessness; Z81.8 Family history of other mental and behavioral disorders; Z81.1 Family history of alcohol abuse and dependence
CPT/HCPCS: 80053; 80061; 80306; 82075; 83036; 84443; 85025

== ENCOUNTER 2020-05-08 08:50 | Emergency (ER) | payer OTHER ==
[2020-05-08 09:00] VITALS: BP 132/75; PULSE 96; RESP 18; TEMP 99
[2020-05-08] MEDS ORDERED: ACET/COD 300 MG/30 MG STARTER PACK 6 TAB BTL PO STA (09:14)
--- NOTE | 2020-05-08 09:14 | ED ---
General Adult HPI - General Chief complaint: Skin/Abscess/Foreign Body Stated complaint: Abscess on Mouth Time Seen by Provider: 05/08/20 09:03 Source: patient, RN notes reviewed Mode of arrival: ambulatory Limitations: no limitations - History of Present Illness Initial comments: 30-year-old male presents emergency Department with chief complaint of dental pain, facial swelling. Patient states started overnight denies any fevers chills no trismus no difficulty swallowing. Denies any headache, dizziness, pressure behind his eyes. Patient states that he's had prior dental infections in which she use some mouthwash it one way. Patient reports no other complaints at this time. Patient states his pain is mild - Related Data Previous Rx's Medication Instructions Recorded Chlorhexidine Gluconate [Peridex] 15 ml MUCOUS MEM BID 7 Days ml 04/27/20 Escitalopram [Lexapro] 10 mg PO DAILY 14 Days tab 04/27/20 OLANZapine [ZyPREXA] 5 mg PO HS 14 Days tab 04/27/20 hydrOXYzine pamoate [Vistaril] 50 mg PO Q6HR PRN #10 cap 04/27/20 Ibuprofen [Motrin] 600 mg PO Q8HR PRN #20 tab 05/08/20 Penicillin V Potassium [Pen Vee K] 500 mg PO QID #40 tablet 05/08/20 Allergies Allergy/AdvReac Type Severity Reaction Status Date / Time No Known Allergies Allergy Verified 05/08/20 08:59 Review of Systems ROS Statement: Those systems with pertinent positive or pertinent negative responses have been documented in the HPI. ROS Other: All systems not noted in ROS Statement are negative. Past Medical History Past Medical History: No Reported History Additional Past Medical History / Comment(s): nephrotic syndrome History of Any Multi-Drug Resistant Organisms: None Reported Past Surgical History: No Surgical Hx Reported Past Psychological History: Depression, Schizophrenia Smoking Status: Current every day smoker Past Alcohol Use History: None Reported Past Drug Use History: None Reported General Exam Limitations: no limitations General appearance: alert, in no apparent distress Head exam: Present: atraumatic, normocephalic, normal inspection Eye exam: Present: normal appearance, PERRL, EOMI. Absent: scleral icterus, conjunctival injection, periorbital swelling ENT exam: Present: mucous membranes moist, TM's normal bilaterally, normal external ear exam. Absent: normal oropharynx (Poor dentition, there is mild swelling on the upper aspect there is no swelling around the orbit no nasal swelling) Neck exam: Present: normal inspection, full ROM. Absent: tenderness, meningismus, lymphadenopathy Respiratory exam: Present: normal lung sounds bilaterally. Absent: respiratory distress, wheezes, rales, rhonchi, stridor Cardiovascular Exam: Present: regular rate, normal rhythm, normal heart sounds. Absent: systolic murmur, diastolic murmur, rubs, gallop, clicks Course Vital Signs 05/08/20 08:56 Temperature 99.0 F Pulse Rate 96 Respiratory 18 Rate Blood Pressure 132/75 O2 Sat by Pulse 97 Oximetry Medical Decision Making - Medical Decision Making 30-year-old male presented for facial swelling he has localized dental infection, early abscess no drainable abscess. Patient was started on Pen-Vee K 4 times daily advised follow-up with dentist within 24-48 hours for recheck and return for any worsening change in symptoms. Disposition Clinical Impression: Dental infection Disposition: HOME SELF-CARE Condition: Stable Instructions (If sedation given, give patient instructions): Toothache (ED) Additional Instructions: Please return to the Emergency Department if symptoms worsen or any other concerns. Prescriptions: Ibuprofen [Motrin] 600 mg PO Q8HR PRN #20 tab PRN Reason: Pain Penicillin V Potassium [Pen Vee K] 500 mg PO QID #40 tablet Is patient prescribed a controlled substance at d/c from ED?: No Referrals: None,Stated [Primary Care Provider] - 1-2 days Time of Disposition: 09:14
== END 2020-05-08 09:23 | disposition home or self-care (01) ==
LOC: EC 08:50
DX: K04.7 Periapical abscess without sinus (principal)
CPT/HCPCS: 99282

== ENCOUNTER 2020-06-23 09:43 | Emergency (ER) | payer MEDICAID, OTHER ==
[2020-06-23 09:47] VITALS: BP 133/80; PULSE 76; RESP 18; TEMP 97.8
[2020-06-23] MEDS ORDERED: ACET/COD 300 MG/30 MG STARTER PACK 6 TAB BTL PO STA (09:59)
--- NOTE | 2020-06-23 09:59 | ED ---
ENT HPI - General Chief complaint: Dental/Oral Stated complaint: Mouth pain Time Seen by Provider: 06/23/20 09:48 Source: patient, RN notes reviewed Mode of arrival: ambulatory Limitations: no limitations - History of Present Illness Initial comments: 30-year-old male presents emergency Department with chief complaint of dental pain. Patient's been having ongoing issues. Patient is very poor dentition. Patient states that he was unable to follow-up with a dentist. No fevers or chills. He states he has increasing pain after his filling fell out on his right upper. Patient offers no other complaints or difficulty swallowing - Related Data Previous Rx's Medication Instructions Recorded Chlorhexidine Gluconate [Peridex] 15 ml MUCOUS MEM BID 7 Days ml 04/27/20 Escitalopram [Lexapro] 10 mg PO DAILY 14 Days tab 04/27/20 OLANZapine [ZyPREXA] 5 mg PO HS 14 Days tab 04/27/20 hydrOXYzine pamoate [Vistaril] 50 mg PO Q6HR PRN #10 cap 04/27/20 Ibuprofen [Motrin] 600 mg PO Q8HR PRN #20 tab 05/08/20 Penicillin V Potassium [Pen Vee K] 500 mg PO QID #40 tablet 05/08/20 Ibuprofen [Motrin] 600 mg PO Q8HR PRN #20 tab 06/23/20 Penicillin V Potassium [Pen Vee K] 500 mg PO QID #40 tablet 06/23/20 Allergies Allergy/AdvReac Type Severity Reaction Status Date / Time No Known Allergies Allergy Verified 06/23/20 09:47 Review of Systems ROS Statement: Those systems with pertinent positive or pertinent negative responses have been documented in the HPI. ROS Other: All systems not noted in ROS Statement are negative. Past Medical History Past Medical History: No Reported History Additional Past Medical History / Comment(s): nephrotic syndrome History of Any Multi-Drug Resistant Organisms: None Reported Past Surgical History: No Surgical Hx Reported Past Psychological History: Depression, Schizophrenia Smoking Status: Current every day smoker Past Alcohol Use History: None Reported Past Drug Use History: None Reported General Exam Limitations: no limitations General appearance: alert, in no apparent distress Head exam: Present: atraumatic, normocephalic, normal inspection Eye exam: Present: normal appearance, PERRL, EOMI. Absent: scleral icterus, conjunctival injection, periorbital swelling ENT exam: Present: mucous membranes moist, TM's normal bilaterally, normal external ear exam. Absent: normal oropharynx (Edentulous, very poor dentition, multiple dental caries and dental fractures no drainable abscess) Neck exam: Present: normal inspection, full ROM. Absent: tenderness, meningismus, lymphadenopathy Respiratory exam: Present: normal lung sounds bilaterally. Absent: respiratory distress, wheezes, rales, rhonchi, stridor Cardiovascular Exam: Present: regular rate, normal rhythm, normal heart sounds. Absent: systolic murmur, diastolic murmur, rubs, gallop, clicks Course Vital Signs 06/23/20 09:44 Temperature 97.8 F Pulse Rate 76 Respiratory 18 Rate Blood Pressure 133/80 O2 Sat by Pulse 100 Oximetry Medical Decision Making - Medical Decision Making 30-year-old male presented for dental pain. Patient discharged on antibiotics, pain control is advised to contact dental clinic or dentist return parameters were discussed. Disposition Clinical Impression: Dental caries, Fracture of tooth Disposition: HOME SELF-CARE Condition: Stable Instructions (If sedation given, give patient instructions): Toothache (ED) Additional Instructions: Please return to the Emergency Department if symptoms worsen or any other concerns. Prescriptions: Ibuprofen [Motrin] 600 mg PO Q8HR PRN #20 tab PRN Reason: Pain Penicillin V Potassium [Pen Vee K] 500 mg PO QID #40 tablet Is patient prescribed a controlled substance at d/c from ED?: No Referrals: None,Stated [Primary Care Provider] - 1-2 days Time of Disposition: 09:58
== END 2020-06-23 10:06 | disposition home or self-care (01) ==
LOC: EC 09:43
DX: K02.9 Dental caries, unspecified (principal); K03.81 Cracked tooth; K08.89 Other specified disorders of teeth and supporting structures; F17.200 Nicotine dependence, unspecified, uncomplicated
CPT/HCPCS: 99282

== ENCOUNTER 2020-09-09 10:01 | Emergency (ER) | payer OTHER ==
[2020-09-09 10:08] VITALS: BP 108/71; PULSE 65; RESP 18; TEMP 98.1
[2020-09-09] MEDS ORDERED: ACETAMINOPHEN TAB 325 MG TAB PO STA (10:44)
[2020-09-09] MEDS ORDERED: CLINDAMYCIN 150 MG CAP PO STA (10:44)
--- NOTE | 2020-09-09 10:51 | ED ---
ENT HPI - General Source: patient Mode of arrival: ambulatory Limitations: no limitations <Alex Seay - Last Filed: 09/09/20 11:17> <Barbara Hobbs - Last Filed: 09/15/20 23:44> - General Chief complaint: Dental/Oral Stated complaint: dental abscess Time Seen by Provider: 09/09/20 10:16 - History of Present Illness Initial comments: Patient is a 30-year-old male that presents to emergency department complaining of upper gum abscess. He noted that the abscess is been present for about 2 months any recently just completed his course of penicillin antibiotics. He noted that he is not able to get to the dentist until the end of October. He stated that he is able to get out of emergency list but does not want to have to call every day to see if she got an appointment due to work conflicts. He notes that the antibiotics seem to keep it at bay long enough for him to go to the dentist. He did state that it is mildly painful and is requesting him type of medication such as Aleve or Tylenol. Patient noted that felt like the infection was cut off work until he deeper. But was not sure due to being at bay from antibiotics. He denied any chest pain short of breath headache nausea vomiting diarrhea constipation (Alex Seay) - Related Data Previous Rx's Medication Instructions Recorded Chlorhexidine Gluconate [Peridex] 15 ml MUCOUS MEM BID 7 Days ml 04/27/20 Escitalopram [Lexapro] 10 mg PO DAILY 14 Days tab 04/27/20 OLANZapine [ZyPREXA] 5 mg PO HS 14 Days tab 04/27/20 hydrOXYzine pamoate [Vistaril] 50 mg PO Q6HR PRN #10 cap 04/27/20 Ibuprofen [Motrin] 600 mg PO Q8HR PRN #20 tab 05/08/20 Penicillin V Potassium [Pen Vee K] 500 mg PO QID #40 tablet 05/08/20 Ibuprofen [Motrin] 600 mg PO Q8HR PRN #20 tab 06/23/20 Penicillin V Potassium [Pen Vee K] 500 mg PO QID #40 tablet 06/23/20 Chlorhexidine Gluconate [Periogard] 15 ml PO BID 10 Days #300 ml 09/09/20 Clindamycin HCl 300 mg PO Q6HR #40 cap 09/09/20 Allergies Allergy/AdvReac Type Severity Reaction Status Date / Time No Known Allergies Allergy Verified 09/09/20 10:05 Review of Systems ROS Other: All systems not noted in ROS Statement are negative. <Alex Seay - Last Filed: 09/09/20 11:17> ROS Other: All systems not noted in ROS Statement are negative. <Barbara Hobbs Evie - Last Filed: 09/15/20 23:44> ROS Statement: Those systems with pertinent positive or pertinent negative responses have been documented in the HPI. Past Medical History Past Medical History: No Reported History Additional Past Medical History / Comment(s): nephrotic syndrome History of Any Multi-Drug Resistant Organisms: None Reported Past Surgical History: No Surgical Hx Reported Past Psychological History: Depression, Schizophrenia Smoking Status: Current every day smoker Past Alcohol Use History: None Reported Past Drug Use History: None Reported <Alex Seay - Last Filed: 09/09/20 11:17> General Exam Limitations: no limitations General appearance: alert, in no apparent distress Head exam: Present: atraumatic, normocephalic, normal inspection Eye exam: Present: normal appearance, PERRL, EOMI. Absent: scleral icterus, conjunctival injection, periorbital swelling ENT exam: Present: normal exam, mucous membranes moist Expanded Teeth exam: Present: other (Small nonfluctuant abscess at superior lip frenulum. 1 cm x 1 cm. Nontender to the touch.) Neck exam: Present: normal inspection. Absent: tenderness, meningismus, lymphadenopathy Respiratory exam: Present: normal lung sounds bilaterally. Absent: respiratory distress, wheezes, rales, rhonchi, stridor Cardiovascular Exam: Present: regular rate, normal rhythm, normal heart sounds. Absent: systolic murmur, diastolic murmur, rubs, gallop, clicks GI/Abdominal exam: Present: soft, normal bowel sounds. Absent: distended, tend erness, guarding, rebound, rigid Extremities exam: Present: normal inspection, full ROM, normal capillary refill. Absent: tenderness, pedal edema, joint swelling, calf tenderness Neurological exam: Present: alert, oriented X3, CN II-XII intact Psychiatric exam: Present: normal affect, normal mood Skin exam: Present: warm, dry, intact, normal color. Absent: rash <Alex Seay - Last Filed: 09/09/20 11:17> Course Vital Signs 09/09/20 10:02 Temperature 98.1 F Pulse Rate 65 Respiratory 18 Rate Blood Pressure 108/71 O2 Sat by Pulse 99 Oximetry Medical Decision Making <Alex Seay - Last Filed: 09/09/20 11:17> <Barbara Hobbs - Last Filed: 09/15/20 23:44> - Medical Decision Making 22-year-old male complaining of small superior frenulum abscess. 300 mg of clindamycin, 650 mg of Tylenol ordered. Patient instructed to get on the emergency point list with his dentist to get in sooner than later. Case discussed with Dr. Hobbs, decided patient discharged home with oral antibiotics and follow-up with dentist. (Alex Seay) I was available for consultation in the emergency department. The history and physical exam were done by the midlevel provider. I was consulted for this patients care. I reviewed the case with the midlevel provider and based on their presentation of the patient, I agree with the assessment, medical decision making and plan of care as documented. PA instructed to attempt dental abscess drainage. Chart was dictated using Vertigo dictation software. Attempts were made to correct any dictation errors however some typographical errors may persist. (Barbara Hobbs) Disposition Is patient prescribed a controlled substance at d/c from ED?: No Time of Disposition: 11:20 <Alex Seay - Last Filed: 09/09/20 11:17> <Barbara Hobbs - Last Filed: 09/15/20 23:44> Clinical Impression: Gingival abscess Disposition: HOME SELF-CARE Condition: Stable Instructions (If sedation given, give patient instructions): Dental Abscess (ED) Additional Instructions: Please return to the Emergency Department if symptoms worsen or any other c oncerns. Take antibiotics as prescribed until complete. Use chlorhexidine mouthwash twice a day swish for 30 seconds and spit it out. Emergency Appointment List with Dentist to Ensure Earlier Visit. Can Take [id number] Pain Medication for Symptom Control. Prescriptions: Clindamycin HCl 300 mg PO Q6HR #40 cap Chlorhexidine Gluconate [Periogard] 15 ml PO BID 10 Days #300 ml Referrals: None,Stated [Primary Care Provider] - 1-2 days
== END 2020-09-09 11:40 | disposition home or self-care (01) ==
LOC: EC 10:01
DX: K05.319 Chronic periodontitis, localized, unspecified severity (principal); K13.0 Diseases of lips; F17.200 Nicotine dependence, unspecified, uncomplicated
CPT/HCPCS: 99282